=== PATIENT | female | born 1985 | race Two or more races ===

== ENCOUNTER 2017-08-03 06:28 | Emergency (ER) | payer BC ==
[~2017-08-03] VITALS: Ht 172.7 cm; Wt 61.2 kg
[2017-08-03 07:43] LABS: BASOPHILS # (AUTO) 0.1 K/uL (0.0-8.0); BASOPHILS % (AUTO) 0.8 % (0.0-2.0); EOSINOPHILS # (AUTO) 0.5 K/uL (0.0-0.7); EOSINOPHILS % (AUTO) 5.4 % (0.0-7.0); HEMATOCRIT 39.9 % (31.2-41.9); HEMOGLOBIN 13.4 g/dL (10.9-14.3); LYMPHOCYTES # (AUTO) 1.8 K/uL (20.0-40.0); LYMPHOCYTES % (AUTO) 21.3 % (20.5-51.5); MEAN CORPUSCULAR HEMOGLOBIN 29.1 uug (24.7-32.8); MEAN CORPUSCULAR HGB CONC 34 g/dL (32.3-35.6); MEAN CORPUSCULAR VOLUME 86.3 fL (75.5-95.3); MONOCYTES # (AUTO) 0.6 K/uL (2.0-10.0); MONOCYTES % (AUTO) 7.2 % (0.0-11.0); NEUTROPHILS # (AUTO) 5.5 K/uL (1.8-8.9); NEUTROPHILS % (AUTO) 65.3 % (38.5-71.5); PLATELET COUNT (AUTO) 316 K/uL (179-408); RED BLOOD CELL COUNT(AUTO) 4.62 MIL/uL (3.63-4.92); WHITE BLOOD COUNT (AUTO) 8.4 K/uL (3.8-11.8)
[2017-08-03] MEDS ORDERED: IV NORMAL SALINE 0 ML IV ONE (07:44)
[2017-08-03] MEDS ORDERED: IOHEXOL 300MG/ML 100 ML INFUS..BTL ONE (07:44)
[2017-08-03 07:56] LABS: CREATININE 0.6 mg/dL (0.6-1.3)
[2017-08-03 08:02] LABS: BILIRUBIN,TOTAL 0.5 mg/dL (0.2-1.0); TOTAL PROTEIN, SERUM 7.3 g/dL (6.4-8.2)
[2017-08-03] MEDS: MORPHINE SULFATE 2 MG/1 ML DISP.SYRIN IV ONE (08:06)
[2017-08-03] MEDS: ONDANSETRON IV *ER 4 MG/2 ML VIAL IV ONE (08:08)
[2017-08-03] MEDS: IV NS 1000 ML 1,000 ML IV ONE (08:11)
[2017-08-03] MEDS: PIPERACILLIN SODIUM/TAZOBACTAM 3.375 G in IV DEXTROSE 5% 50 ML IV ONE (08:12)
--- NOTE | 2017-08-03 08:13 | NUR ---
PT IS IN ROOM #2B. DR CHAVARRIA EVALUATED THE PT.
[2017-08-03] MEDS ORDERED: ONDANSETRON 4 MG/2 ML VIAL ONE (08:14)
[2017-08-03] MEDS ORDERED: MORPHINE SULFATE 10 MG/1 ML DISP.SYRIN ONE (08:16)
[2017-08-03] MEDS ORDERED: PIPERACILLIN/TAZOBACTAM/D5W 50 ML IV ONE (08:17)
--- NOTE | 2017-08-03 11:17 | NUR ---
PT WAS D/C TO HOME. D/C INSTRUCTIONS GIVEN TO THE PT.
[2017-08-03 11:18] VITALS: BP 118/70
== END 2017-08-03 11:20 | disposition home or self-care (01) ==
LOC: ER 06:39
DX: R10.31 Right lower quadrant pain (principal)
CPT/HCPCS: 76700; 76856; 80053; 83690; 85025; 85610; 96365; 96375; 99285; A4663; J2270; J2405; J2543; J7030; J7050; Q9967